=== PATIENT | male | born 1980 | race Caucasian/White ===

== ENCOUNTER 2019-10-31 06:18 | Emergency (ER) | payer SELFPAY ==
[2019-10-31] MEDS ORDERED: Alum Hydrox/Mag Hydrox/Simeth 15 ML, Metoclopramide 5 MG, Lidocaine 2% 5 ML PO ONE ×3 (06:46)
[2019-10-31] MEDS ORDERED: Sodium Chloride 0.9% 2.5 ML Syringe FLUSH PRN (06:46)
[2019-10-31] MEDS ORDERED: Sodium Chloride 0.9% 10 ML Syringe FLUSH PRN (06:46)
[2019-10-31] MEDS ORDERED: Haloperidol Lactate 5 MG/ML SDV IM ONE (06:46)
[2019-10-31] MEDS ORDERED: Ketorolac 30 MG/ML SDV IVPUSH ONE (06:48)
--- NOTE | 2019-10-31 06:56 | EDM.PDOC ---
<Myrna Hernandez - Last Filed: 10/31/19 06:51> ED HPI GENERAL MEDICAL PROBLEM - General Chief Complaint: Abdominal Pain Stated Complaint: SICK, ABDOMINAL PAIN Time Seen by Provider: 10/31/19 06:27 Source of Information: Reports: Patient, Family History Limitations: Reports: No Limitations - History of Present Illness INITIAL COMMENTS - FREE TEXT/NARRATIVE: 39-year-old male presents with 2 and half day history of abdominal discomfort nausea and vomiting. Abdominal discomfort is crampy and mild to moderate at worst. Patient reports being nauseated initially about 2 and half days ago and had some cold chills and felt some abdominal cramping. He felt little bit better yesterday and then today has had crampy global abdominal discomfort and has vomited 2 times. His second vomitus there was small amount of blood. He denies any recent trauma. He denies any true fevers. Denies any shortness of breath nasal congestion cough arm pain jaw pain or chest pain. No confusion weakness or numbness. No headache or vision changes. Denies any dysuria. Denies loose stools. Last bowel movement this morning. - Related Data Allergies Allergy/AdvReac Type Severity Reaction Status Date / Time No Known Allergies Allergy Verified 10/31/19 06:29 Home Meds: Home Meds Ondansetron [Zofran ODT] 4 mg PO Q6H PRN #12 tab.dis 10/31/19 [Rx] Past Medical History - Infectious Disease History Infectious Disease History: Reports: Chicken Pox Social & Family History - Tobacco Use Smoking Status *Q: Never Smoker Second Hand Smoke Exposure: No - Caffeine Use Caffeine Use: Reports: Coffee - Recreational Drug Use Recreational Drug Use: No ED ROS GENERAL - Review of Systems Review Of Systems: Comprehensive ROS is negative, except as noted in HPI. ED EXAM, GENERAL - Physical Exam Exam: See Below Free Text/Narrative:: General: No acute distress. Comfortable. Heent: Examination revealed no pallor, no icterus, no lymphadenopathy. The patient has normal posterior pharynx, moist mucous membranes. Neck: Supple. No JVD. No rigidity. Heart: Normal rate. Reg rhythm. No murmurs appreciated. Lungs: Bilaterally clear to auscultation. No focal findings. Abdomen: Global mild tenderness., non-distended, soft, no CVA tenderness. Neuro: Pt is moving all four extremities. EOMI. PERRL. Normal speech. Skin: Exposed areas appeared normally perfused, warm, normal color with no meaningful rashes or lesions. Extremities: Peripheral examination revealed no pedal edema. Peripheral pulses were 2+. Course - Vital Signs Text/Narrative:: Patient with very mild abdominal exam and fairly un-concerning symptomology. This is likely some sort of gastritis or gastroenteritis. However other pathologies possible this may be early important disease. He has global tenderness only but is very diffuse. This is not at this time anything like peritonitis. We will complete a plain film looking for bowel gas pattern. Basic laboratories. Medications for symptom relief. If no improvement we can consider CT scan later. Patient care to oncoming ED physician awaiting return of laboratories, success of treatment, reevaluation. Last Recorded V/S: Last Vital Signs Temp 95.5 F L 10/31/19 06:19 Pulse 65 10/31/19 06:19 Resp 16 10/31/19 06:19 BP 128/87 10/31/19 06:19 Pulse Ox 97 10/31/19 06:19 - Orders/Labs/Meds Orders: Active Orders 24 hr Category Date Time Status Sodium Chloride 0.9% [Normal Saline] 1,000 ml Med 10/31/19 07:05 Active IV .BOLUS Sodium Chloride 0.9% [Saline Flush] Med 10/31/19 06:46 Active 10 ml FLUSH ASDIRECTED PRN Sodium Chloride 0.9% [Saline Flush] Med 10/31/19 06:46 Active 2.5 ml FLUSH ASDIRECTED PRN Saline Lock Insert [OM.PC] Stat Oth 10/31/19 06:46 Ordered Medication Orders Sodium Chloride (Normal Saline) 1,000 mls @ 999 mls/hr IV .BOLUS ONE Stop: 10/31/19 08:05 Last Admin: 10/31/19 07:11 Dose: 999 mls/hr Sodium Chloride (Saline Flush) 10 ml FLUSH ASDIRECTED PRN PRN Reason: Keep Vein Open Last Admin: 10/31/19 07:09 Dose: 10 ml Sodium Chloride (Saline Flush) 2.5 ml FLUSH ASDIRECTED PRN PRN Reason: Keep Vein Open Last Admin: 10/31/19 07:09 Dose: 2.5 ml Labs: Laboratory Tests 10/31/19 10/31/19 Range/Units 07:00 07:00 WBC 9.69 (4.0-11.0) K/uL RBC 4.66 (4.50-5.90) M/uL Hgb 13.7 (13.0-17.0) g/dL Hct 41.4 (38.0-50.0) % MCV 88.8 (80.0-98.0) fL MCH 29.4 (27.0-32.0) pg MCHC 33.1 (31.0-37.0) g/dL RDW Std Deviation 43.2 (28.0-62.0) fl RDW Coeff of Fariha 13 (11.0-15.0) % Plt Count 233 (150-400) K/uL MPV 9.40 (7.40-12.00) fL Neut % (Auto) 82.4 H (48.0-80.0) % Lymph % (Auto) 9.9 L (16.0-40.0) % [place] % (Auto) 7.2 (0.0-15.0) % Eos % (Auto) 0.4 (0.0-7.0) % Baso % (Auto) 0.1 (0.0-1.5) % Neut # (Auto) 8.0 H (1.4-5.7) K/uL Lymph # (Auto) 1.0 (0.6-2.4) K/uL [place] # (Auto) 0.7 (0.0-0.8) K/uL Eos # (Auto) 0.0 (0.0-0.7) K/uL Baso # (Auto) 0.0 (0.0-0.1) K/uL Nucleated RBC % 0.0 /100WBC Nucleated RBCs # 0 K/uL Sodium 138 (136-148) mmol/L Potassium 3.9 (3.5-5.1) mmol/L Chloride 102 (98-107) mmol/L Carbon Dioxide 26.8 (21.0-32.0) mmol/L BUN 12 (7.0-18.0) mg/dL Creatinine 1.3 (0.8-1.3) mg/dL Est Cr Clr Drug Dosing 82.91 mL/min Estimated GFR (MDRD) > 60.0 ml/min Glucose 134 H (74-106) mg/dL Calcium 8.3 L (8.5-10.1) mg/dL Total Bilirubin 1.0 (0.2-1.0) mg/dL AST 22 (15-37) IU/L ALT 46 (14-63) IU/L Alkaline Phosphatase 91 (46-116) U/L Total Protein 7.9 (6.4-8.2) g/dL Albumin 3.9 (3.4-5.0) g/dL Globulin 4.0 (2.6-4.0) g/dL Albumin/Globulin Ratio 1.0 (0.9-1.6) Lipase 128 (73-393) U/L Meds: Medications Generic Name Dose Route Start Last Admin Trade Name Freq PRN Reason Stop Dose Admin Sodium Chloride 1,000 mls @ 999 mls/hr 10/31/19 07:05 10/31/19 07:11 Normal Saline IV 10/31/19 08:05 999 mls/hr .BOLUS ONE Administration Sodium Chloride 10 ml 10/31/19 06:46 10/31/19 07:09 Saline Flush FLUSH 10 ml ASDIRECTED PRN Administration Keep Vein Open Sodium Chloride 2.5 ml 10/31/19 06:46 10/31/19 07:09 Saline Flush FLUSH 2.5 ml ASDIRECTED PRN Administration Keep Vein Open Discontinued Medications Generic Name Dose Route Start Last Admin Trade Name Freq PRN Reason Stop Dose Admin Al Hydroxide/Mg Hydroxide 15 0 ml 10/31/19 06:46 10/31/19 07:07 ml/ Metoclopramide HCl 5 mg/ PO 10/31/19 06:47 1 each Lidocaine HCl 5 ml ONETIME ONE Administration Haloperidol Lactate 1.5 mg 10/31/19 06:46 10/31/19 07:04 Haldol IM 10/31/19 06:47 1.5 mg ONETIME ONE Administration Ketorolac Tromethamine 15 mg 10/31/19 06:48 10/31/19 07:07 Toradol IVPUSH 10/31/19 06:49 15 mg ONETIME ONE Administration Departure - Departure Disposition: Home, Self-Care 01 Condition: Good Clinical Impression: Vomiting Abdominal pain Qualifiers: Abdominal location: generalized Qualified Code(s): R10.84 - Generalized abdominal pain - Discharge Information Prescriptions: Ondansetron [Zofran ODT] 4 mg PO Q6H PRN #12 tab.dis PRN Reason: Nausea/Vomiting Instructions: Abdominal Pain, Adult, Nausea and Vomiting, Adult Referrals: PCP,None [Primary Care Provider] - Amanda De Jesus [Ordering Only Provider] - 1 Day Forms: ED Department Discharge Additional Instructions: The following information is given to patients seen in the emergency department who are being discharged to home. This information is to outline your options for follow-up care. We provide all patients seen in our emergency department with a follow-up referral. The need for follow-up, as well as the timing and circumstances, are variable depending upon the specifics of your emergency department visit. If you don't have a primary care physician on staff, we will provide you with a referral. We always advise you to contact your personal physician following an emergency department visit to inform them of the circumstance of the visit and for follow-up with them and/or the need for any referrals to a consulting specialist. The emergency department will also refer you to a specialist when appropriate. This referral assures that you have the opportunity for follow-up care with a specialist. All of these measure are taken in an effort to provide you with optimal care, which includes your follow-up. Under all circumstances we always encourage you to contact your private physician who remains a resource for coordinating your care. When calling for follow-up care, please make the office aware that this follow-up is from your recent emergency room visit. If for any reason you are refused follow-up, please contact the [facility] Emergency Department at and asked to speak to the emergency department charge nurse. Sepsis Event Note - Evaluation Sepsis Screening Result: No Definite Risk - Focused Exam Vital Signs: Vital Signs Temp Pulse Resp BP Pulse Ox 10/31/19 06:19 95.5 F L 65 16 128/87 97 Date Exam was Performed: 10/31/19 Time Exam was Performed: 06:51 <Vicki Espinoza - Last Filed: 10/31/19 07:54> Course - Vital Signs Text/Narrative:: Patient signed out to myself at 0705 pending labs and plain film. At 07 42, labs are reviewed by myself and are unremarkable. Plain film read by radiologist, report reviewed by myself. Patient seen and examined at bedside. His abdomen is soft nontender with no guarding rebound or peritoneal signs. He reports he is pain-free. After history, physical exam, and diagnostic evaluation, the etiology for the pain is unclear. I think there is a very low probability of significant abdominal pathology based on today's evaluation. The patient is advised to have a followup tomorrow for a recheck and repeat abdominal exam. I also advised to return to the emergency department immediately for significant pain, fevers, not tolerating oral food or fluid, or new complaints. Departure - Departure Time of Disposition: 07:49 - Discharge Information *PRESCRIPTION DRUG MONITORING PROGRAM REVIEWED*: Not Applicable *COPY OF PRESCRIPTION DRUG MONITORING REPORT IN PATIENT MAYURI: Not Applicable Sepsis Event Note - Focused Exam Date Exam was Performed: 10/31/19 Time Exam was Performed: 07:51
[2019-10-31] MEDS ORDERED: Sodium Chloride 0.9% 1,000 ML IV ONE (07:05)
[2019-10-31 07:31] LABS: BLOOD UREA NITROGEN,BUN 12 mg/dL (7.0-18.0); CARBON DIOXIDE,CO2 26.8 mmol/L (21.0-32.0); CHLORIDE,CL 102 mmol/L (98-107); GLUCOSE RANDOM 134 mg/dL (74-106); LIPASE 128 U/L (73-393); POTASSIUM,K 3.9 mmol/L (3.5-5.1); SODIUM,NA 138 mmol/L (136-148)
--- NOTE | 2019-10-31 07:41 | CR ---
Abdomen: Single upright view of the abdomen was obtained. Visualized bowel gas appears unremarkable. No free air is seen. Bony structures are unremarkable. Impression: 1. Unremarkable upright abdominal x-ray. Diagnostic code #1 This report was dictated in MDT
== END 2019-10-31 08:19 | disposition home or self-care (01) ==
LOC: MW.ED 06:18
DX: R10.84 Generalized abdominal pain (principal); R11.2 Nausea with vomiting, unspecified
CPT/HCPCS: 36415; 74018; 80053; 83690; 85025; 96361; 96372; 96374; 99285; A9270; J1630; J1885; J7030

== ENCOUNTER 2023-02-23 00:03 | Emergency (ER) | payer SELFPAY ==
[2023-02-23] MEDS ORDERED: Amoxicillin/Clavulanate K 875-125 MG Tab PO ONE (00:13)
[2023-02-23] MEDS ORDERED: Erythromycin Base 0.5% Ophth Oint 1 GM Tube EYEBOTH ONE (00:13)
== END 2023-02-23 00:25 | disposition home or self-care (01) ==
LOC: MW.ED 00:03
DX: L03.213 Periorbital cellulitis (principal); H10.9 Unspecified conjunctivitis
CPT/HCPCS: 99283; A9270